=== PATIENT | male | born 1970 | race Caucasian/White ===

== ENCOUNTER 2018-08-20 14:57 | Emergency (ER) | payer OTHER, SELFPAY ==
[2018-08-20 15:05] VITALS: BP 136/85; PULSE 52; RESP 14; TEMP 36.6; O2SAT 98
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
[2018-08-20] MEDS: Ibuprofen 600 MG TAB PO (15:45)
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
--- NOTE | 2018-08-20 16:17 | NUR.NOTE ---
XRAY COMPLETED PT RESTING IN BED WHEEL CHAIR IN [place] NO DISTRESS NOTED NONE STATED Nursing Note:
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
[2018-08-20 17:03] VITALS: BP 144/80; PULSE 50; RESP 14; TEMP 36.5; O2SAT 97
== END 2018-08-20 17:02 | disposition home or self-care (01) ==
LOC: ER 16:23
PROVIDERS: Emergency Provider Physician Assistant
DX: S50.02XA Contusion of left elbow, initial encounter (principal); V18.0XXA Pedal cycle driver injured in noncollision transport accident in nontraffic accident, initial encounter
CPT/HCPCS: 87880; 99282; 99283; 73080; L3650